=== PATIENT | female | born 1980 | race Caucasian/White ===

== ENCOUNTER 2019-08-16 23:04 | Emergency (ER) | payer BC ==
[2019-08-16] MEDS ORDERED: ONDANSETRON HCL INJ/PF 4 MG/2 ML SDV IV ONE (23:21)
[2019-08-16] MEDS ORDERED: NORMAL SALINE 1000 ML 1,000 ML IV ONE (23:22)
--- NOTE | 2019-08-16 23:25 | ER Document Report ---
ED Medical Screen (RME) - General Chief Complaint: ETOH Abuse Stated Complaint: DETOX ETOH Time Seen by Provider: 08/16/19 23:20 Notes: Patient is a 39-year-old female who presents to the emergency department with a chief complaint of withdrawal. Patient reports that she was clean from alcohol abuse for 6 months. Patient reports in June, which was about 1 month ago her grandmother causing her relapse. She reports she has been to rehab in the past but has never had any withdrawal seizures. Patient reports that she drinks 1-2 big bottles of wine per day. Patient reports her last alcoholic beverage was around 4 PM. Patient reports body tremors and hand tremors. Patient denies hallucinations. Patient denies recreational drug use. Patient called her family member deanna as she did want help and to come to the emergency department. Physical Exam - Vital signs Vitals: Temp Pulse Resp BP Pulse Ox 98.1 F 95 18 133/99 H 95 08/16/19 23:10 08/16/19 23:10 08/16/19 23:10 08/16/19 23:10 08/16/19 23:10 Course - Re-evaluation Re-evalutation: 08/16/19 23:23 Patient noted to have body tremors including hand tremors. Patient heart rate 160. Patient HUNG level upgraded to a level 2, charge nurse made aware so we can place the patient in a room on a conveyor monitor. I have initiated blood work, IV and IV fluids. I have greeted and performed a rapid initial assessment of this patient. A comprehensive ED assessment and evaluation of the patient, analysis of test results and completion of the medical decision making process will be conducted by additional ED providers. - Vital Signs Vital signs: Temp Pulse Resp BP Pulse Ox 98.1 F 95 18 133/99 H 95 08/16/19 23:10 08/16/19 23:10 08/16/19 23:10 08/16/19 23:10 08/16/19 23:10
[2019-08-17 01:31] LABS: APPEARANCE,URINE SLIGHTLY-CLOUDY; BILIRUBIN,URINE NEGATIVE (NEGATIVE); COLOR,URINE YELLOW; GLUCOSE, URINE NEGATIVE (NEGATIVE); KETONES,URINE 20 mg/dL (NEGATIVE); LEUKOCYTE ESTERASE,URINE NEGATIVE (NEGATIVE); NITRITE,URINE NEGATIVE (NEGATIVE); PROTEIN,URINE >=500 mg/dL (NEGATIVE); URINE SPECIFIC GRAVITY 1.022; UROBILINOGEN,URINE NEGATIVE mg/dL (<2.0)
[2019-08-17 01:50] LABS: ABSOLUTE BASOPHILS # (AUTO) 0.1 10^3/uL (0.0-0.2); ABSOLUTE LYMPHOCYTES (AUTO) 2.2 10^3/uL (0.5-4.7); ABSOLUTE MONOCYTES (AUTO) 0.5 10^3/uL (0.1-1.4); ABSOLUTE NEUT (AUTO) 8.8 10^3/uL (1.7-8.2); BASOPHILS % (AUTO) 0.5 % (0-2); HEMOGLOBIN 16.4 g/dL (12.0-15.5); LYMPHOCYTES % (AUTO) 18.7 % (13-45); MEAN CORPUSCULAR HEMOGLOBIN 29.4 pg (27.0-33.4); MEAN CORPUSCULAR HGB CONC 33.5 g/dL (32.0-36.0); MEAN CORPUSCULAR VOLUME 88 fl (80-97); MONOCYTES % (AUTO) 4.6 % (3-13); PLATELET COUNT 290 10^3/uL (150-450); RED BLOOD COUNT 5.59 10^6/uL (3.72-5.28); RED CELL DISTRIBUTION WIDTH 13.7 % (11.5-14.0); SEGMENTED NEUTROPHILS % (AUTO) 76.2 % (42-78); TOTAL CELLS COUNTED % (AUTO) 100 %; WHITE BLOOD COUNT 11.5 10^3/uL (4.0-10.5)
[2019-08-17 01:53] LABS: URINE AMPHETAMINES SCREEN NEGATIVE; URINE BARBITURATES SCREEN NEGATIVE; URINE BENZODIAZEPINES SCREEN NEGATIVE; URINE COCAINE SCREEN NEGATIVE; URINE MARIJUANA (THC) SCREEN NEGATIVE; URINE METHADONE SCREEN NEGATIVE; URINE PHENCYCLIDINE SCREEN NEGATIVE
[2019-08-17 02:11] LABS: ALBUMIN 4.8 g/dL (3.5-5.0); ALCOHOL 222 mg/dL (NONE DETECTED); ALKALINE PHOSPHATASE 106 U/L (38-126); ANION GAP 19 (5-19); ASPARTATE AMINO TRANSFERASE 43 U/L (14-36); BILIRUBIN,TOTAL 1.2 mg/dL (0.2-1.3); BLOOD UREA NITROGEN 10 mg/dL (7-20); CALCIUM 9.2 mg/dL (8.4-10.2); CARBON DIOXIDE 24 mmol/L (22-30); CHLORIDE 93 mmol/L (98-107); POTASSIUM 5.1 mmol/L (3.6-5.0); TOTAL PROTEIN 7.6 g/dL (6.3-8.2)
[2019-08-17 02:17] LABS: GLUCOSE 68 mg/dL (75-110)
[2019-08-17] MEDS ORDERED: METOPROLOL TARTRATE PF/INJ 5 MG/5 ML SDV IV ONE (04:03)
[2019-08-17] MEDS ORDERED: LORAZEPAM INJ 2 MG/1 ML VIAL IV ONE (04:03)
--- NOTE | 2019-08-17 04:13 | ER Document Report ---
ED General - General Chief Complaint: Alcohol Withdrawl Stated Complaint: DETOX ETOH Time Seen by Provider: 08/16/19 23:20 - HPI Notes: Ms. Hairston is a 39-year-old female who presents requesting alcohol detox. Patient previously went through detox last year. States that she "fell off the wagon" several weeks ago after the of a relative. She has been drinking about 2 pints of wine per day since then. Last alcohol intake was about 4 hours prior to presentation today. She feels tremulous and has vomited once. Also co mplains of dull headache. Patient denies use of drugs. She denies any hallucinations auditory or visual. She denies any suicidal or homicidal ideation. She has had a history of palpitations and regularly takes unknown dose of a beta-shereen and diltiazem. She is not had either these medications today. 2 para 2. Prior appendectomy. - Related Data Allergies/Adverse Reactions: No Known Allergies Allergy (Unverified 08/17/19 01:21) Home Medications: Cardizem. Citalopram. Trazadone. Hydroxyzine. Metoprolol Past Medical History - General Information source: Patient - Social History Smoking Status: Current Some Day Smoker Frequency of alcohol use: Heavy Drug Abuse: None Family History: Reviewed & Not Pertinent Patient has suicidal ideation: No Patient has homicidal ideation: No Psychiatric Medical History: Reports: Hx Depression Past Surgical History: Reports: Hx Appendectomy Review of Systems - Review of Systems Notes: Constitutional: Negative for fever. HENT: Negative for sore throat. Eyes: Negative for visual changes. Cardiovascular: Negative for chest pain. Respiratory: Negative for shortness of breath. Gastrointestinal: As per HPI. Genitourinary: Last menses 2 weeks ago described as normal. Negative for dysuria. Musculoskeletal: Negative for back pain. Skin: Negative for rash. Neurological: As per HPI. 10 point ROS negative except as marked above and in HPI. Physical Exam - Vital signs Vitals: Temp Pulse Resp BP Pulse Ox 98.1 F 95 18 133/99 H 95 08/16/19 23:10 08/16/19 23:10 08/16/19 23:10 08/16/19 23:10 08/16/19 23:10 - Notes Notes: GENERAL: Female patient of approximately stated age appearing anxious and tremulous with strong odor of alcohol present. SKIN: Good turgor no rashes. HEAD: Normocephalic atraumatic. EYES: PERRLA. EOMI. Conjunctivae injected bilaterally. EARS: CANALS AND TMS CLEAR. NOSE: CLEAR. MOUTH: Moist mucosa. Good dentition. No stridor or edema. No drooling. NECK: Supple. No masses or thyromegaly. No adenopathy. Carotids 2+ without bruits. No JVD. BACK: Symmetrical without tenderness. CHEST: Tachycardic. Respirations unlabored. Breath sounds clear and symmetrical. HEART: Regular rhythm. No murmur gallop or rub. ABDOMEN: Soft nontender without masses, organomegaly or rebound. Bowel sounds normally active. No bruits. GENITALIA: Deferred. EXTREMITIES: No edema. No calf tenderness. Cap refill less than 1.5 seconds. Dorsalis pedis and posterior tibial pulses 3+ and symmetrical. NEUROLOGICAL: Mild generalized tremor. GCS 15. Alert and oriented x3. Normal gait. Fluent speech. Cranial nerves II through XII intact. Sensorimotor and cerebellar normal. Normal tone. PSYCHIATRIC: Anxious affect. Course - Re-evaluation Re-evalutation: 08/17/19 04:16 Blood alcohol is 222. Urine drug screen is negative. Patient has mild alcohol withdrawal symptoms at this time. IV banana bag has been ordered. IV Ativan ordered. Because she has been on beta-shereen and calcium channel antagonist previously I will give her some metoprolol IV at this time. We will ask mental health to see the patient regarding referral to an inpatient detox facility. - Vital Signs Vital signs: Temp Pulse Resp BP Pulse Ox 98.1 F 104 H 25 H 106/81 92 08/17/19 02:01 08/17/19 01:10 08/17/19 03:00 08/17/19 02:01 08/17/19 03:00 - Laboratory Result Diagrams: 08/17/19 01:30 08/17/19 01:30 Laboratory results interpreted by me: 08/17/19 08/17/19 08/17/19 01:00 01:30 01:30 WBC 11.5 H RBC 5.59 H Hgb 16.4 H Hct 49.0 H Absolute Neuts (auto) 8.8 H Sodium 135.6 L Potassium 5.1 H Chloride 93 L Glucose 68 L AST 43 H Urine Protein >=500 H Urine Ketones 20 H Urine Blood MODERATE H Discharge - Discharge Clinical Impression: Chronic alcoholism Alcohol withdrawal syndrome Qualifiers: Complication of substance-induced condition: uncomplicated Qualified Code(s): F10.230 - Alcohol dependence with withdrawal, uncomplicated Condition: Stable Disposition: PSYCH HOSP/UNIT
[2019-08-17] MEDS ORDERED: THIAMINE HCL INJ 200 MG/2 ML VIAL ONE (04:56)
[2019-08-17] MEDS ORDERED: FOLIC ACID INJ 5 MG/1 ML 10 ML VIAL ONE (04:56)
[2019-08-17] MEDS ORDERED: POTASSI CL 20 MEQ/50 ML RIDER 0 MEQ/0 ML RTUPB IV ONE (04:59)
[2019-08-17] MEDS ORDERED: POTASSI CL 20 MEQ/NS 1L 1,000 ML IV ONE (04:59)
[2019-08-17] MEDS ORDERED: THIAMINE HCL 100 MG TABLET PO ONE (05:12)
[2019-08-17] MEDS ORDERED: MAGNESIUM SULFATE INJ 8 MEQ/2 ML IV ONE (05:13)
[2019-08-17] MEDS ORDERED: MVI, ADULT NO.1 WITH VIT K INJ 10 ML VIAL IV ONE ×2 (05:19→05:36)
[2019-08-17] MEDS ORDERED: HYDROXYZINE PAMOATE 25 MG CAPSULE PO ONE (10:42)
[2019-08-17] MEDS ORDERED: DIAZEPAM 5 MG TABLET PO ONE ×2 (10:45→15:27)
[2019-08-17] MEDS ORDERED: NICOTINE 14 MG/24 HR PATCH.TD24 TD ONE (10:49)
[2019-08-17] MEDS ORDERED: FAMOTIDINE 20 MG TABLET PO ONE (10:49)
[2019-08-17] MEDS ORDERED: SUCRALFATE 1 GM TABLET PO ONE (10:49)
--- NOTE | 2019-08-17 10:51 | ER Document Report ---
Doctor's Note Notes: 08/17/19 10:50 PHYSICAL EXAMINATION: GENERAL: Appears well, healthy, well-nourished, no acute distress. LUNGS: Equal breath sounds bilaterally and clear to auscultation. No wheezes rales or rhonchi. CARDIOVASCULAR: S1-S2, regular rate, regular rhythm. Radial pulses 2+, normal. ABDOMEN: Normoactive bowel sounds. Soft, nontender, no guarding, no rebound tenderness, and no masses palpated. PSYCH: Stoic. Patient states that she feels a little agitated. She does have a little bit of left upper quadrant abdominal discomfort. Ordered Pepcid and Carafate for her. Awaiting mental health recommendations. 08/17/19 15:17 Patient has a bed at [facility]. Patient states that she feels a little anxious and shaky like she did earlier, and stated that the Valium did help her earlier. I will give her another dose before she leaves. Mental health has cleared the patient. And she is also medically clear. Labs reviewed. Follow- up precautions were given. Verbal discharge instructions were given to the patient. They verbalized understanding. They are stable for transfer to [facility].
[2019-08-17 12:39] VITALS: BP 115/82
--- NOTE | 2019-08-17 14:51 | PSYCHOLOGICAL NOTE ---
Psych Note - Psych Note Date seen by psych provider: 08/17/19 Time seen by psych provider: 08:34 - Initial Evaluation Psych Note: Presenting Problem: Patient presented to the ED late last evening for alcohol withdrawal and desire for detox. Her Serum Alcohol Level was 222 upon arrival to the ED. She reported drinking 1-2 wine bottles daily for the past 6 months. She acknowledged she relapsed when her grandmother . She denied SI/HI and these were never presenting concerns. She confirmed she wanted treatment, detox not longer term and wanted to be close. She gave verbal consent for linkage and referral to [facility] for voluntary alcohol detox. She identified she has been in treatment in the past, needs to detox and then she knows what she needs to do. She denied any seizure history. She reported she has sinus tachycardia. She acknowledged she is prescribed Celexa and Vistaril from a Psychologist in [place]. She stated she has medication management and therapy there but need local linkage. Patient made fair eye contact and engaged in evaluation. [facility] ED [facility] team coordinated with Agnelique at [facility] for placement. Provided verbal referral (patient name, age, bday, alcohol use and wanting detox). They stated they would have bed available at 1600 but patient would need to have a ride. Explained patient would have packet with her lab work. Patient agreed to go and had no problem with having to wait an hour and a half. She had an older male show up to visit who said he would transport her from ED to [place]. Diagnosis: Alcohol Intoxication Alcohol Withdrawal Desire for Detox Impression/Plan: Patient is cleared from acute psychiatric services. She denied SI/HI, made fair eye contact and was engaged in evaluation. She expressed desire for voluntary alcohol detox as close as possible. She gave verbal consent to provide linkage to [facility]. They have accepted her and bed available at 1600. Older male visitor said he would transport her from ED to [place]. Consulted with Dr. Mckinney regarding the management and care of patient. ED Physician in agreement with recommendations.
[2019-08-17] MEDS ORDERED: NORMAL SALINE 1000 ML 1,000 ML with POTASSIUM CHLORIDE 10 MEQ, MAGNESIUM SULFATE 8 MEQ,... IV SCH ×5 (18:00)
--- NOTE | 2019-08-17 23:26 | EKG REPORT ---
SEVERITY:- ABNORMAL ECG - SINUS TACHYCARDIA LEFT POSTERIOR FASCICULAR BLOCK BORDERLINE T ABNORMALITIES, INFERIOR LEADS : Confirmed by: Zaki Martinez 17-Aug-2019 23:25:27
== END 2019-08-17 15:57 | disposition home or self-care (01) ==
LOC: ER 23:04
DX: F10.230 Alcohol dependence with withdrawal, uncomplicated (principal); Y90.7 Blood alcohol level of 200-239 mg/100 ml; I44.5 Left posterior fascicular block; Z63.4 Disappearance and death of family member; R51 Headache; R00.0 Tachycardia, unspecified; R11.10 Vomiting, unspecified; R25.1 Tremor, unspecified; F32.9 Major depressive disorder, single episode, unspecified; R00.2 Palpitations; Z79.899 Other long term (current) drug therapy; F17.200 Nicotine dependence, unspecified, uncomplicated
CPT/HCPCS: 93005; 99285; 96361; 96375; 96365; 96366; 36415; 80307 ×2; 84703; 85025; 80053; 81001; 93010; J3490 ×3; J3475; J2060; J2405; J7030

== ENCOUNTER 2019-08-19 21:11 | Emergency (ER) | payer BC ==
--- NOTE | 2019-08-19 22:38 | ER Document Report ---
ED Medical Screen (RME) - General Chief Complaint: Arm Problem Stated Complaint: LEFT ARM PAIN Time Seen by Provider: 08/19/19 22:36 Notes: 39-year-old female presents with left elbow pain. Patient states she thinks that her IV is still in there. Patient had IV placed here. Patient states there is streaking. Radial pulse 2+. No erythema, no swelling. I have greeted and performed a rapid initial assessment of this patient. A comprehensive ED assessment and evaluation of the patient, analysis of test results and completion of the medical decision making process with be conducted by additional ED providers. TRAVEL OUTSIDE OF THE [place] IN LAST 30 DAYS: No - Related Data Allergies/Adverse Reactions: No Known Allergies Allergy (Unverified 08/19/19 22:30) Past Medical History Psychiatric Medical History: Reports: Hx Depression Past Surgical History: Reports: Hx Appendectomy Physical Exam - Vital signs Vitals: Temp Pulse Resp BP Pulse Ox 99.1 F 72 18 145/98 H 99 08/19/19 22:07 08/19/19 22:07 08/19/19 22:07 08/19/19 22:07 08/19/19 22:07 Course - Vital Signs Vital signs: Temp Pulse Resp BP Pulse Ox 99.1 F 72 18 145/98 H 99 08/19/19 22:07 08/19/19 22:07 08/19/19 22:07 08/19/19 22:07 08/19/19 22:07
--- NOTE | 2019-08-19 23:43 | RADIOLOGY REPORT (SQ) ---
EXAM DESCRIPTION: XR ELBOW 3 VIEWS COMPLETED DATE/TME: 08/19/2019 22:41 CLINICAL HISTORY: 39 years ,Female pain, recent IV placement, rule out foreign body COMPARISON: None. TECHNIQUE: Left elbow, four view FINDINGS: No acute fractures or dislocations are identified. No osseous destructive lesions. No evidence of joint effusion. Bone island in the radial head. IMPRESSION: No acute fractures are identified. If symptoms persist, followup is recommended in 7-10 days.
[2019-08-20 00:39] LABS: ALBUMIN 4.2 g/dL (3.5-5.0); ALKALINE PHOSPHATASE 80 U/L (38-126); ANION GAP 7 (5-19); ASPARTATE AMINO TRANSFERASE 130 U/L (14-36); BILIRUBIN,TOTAL 0.5 mg/dL (0.2-1.3); BLOOD UREA NITROGEN 13 mg/dL (7-20); CALCIUM 9.7 mg/dL (8.4-10.2); CARBON DIOXIDE 32 mmol/L (22-30); CHLORIDE 99 mmol/L (98-107); GLUCOSE 89 mg/dL (75-110); POTASSIUM 4.7 mmol/L (3.6-5.0); TOTAL PROTEIN 6.9 g/dL (6.3-8.2); URINE AMPHETAMINES SCREEN NEGATIVE; URINE BARBITURATES SCREEN NEGATIVE; URINE BENZODIAZEPINES SCREEN NEGATIVE; URINE COCAINE SCREEN NEGATIVE; URINE MARIJUANA (THC) SCREEN NEGATIVE; URINE METHADONE SCREEN NEGATIVE; URINE PHENCYCLIDINE SCREEN NEGATIVE
[2019-08-20 01:28] LABS: ABSOLUTE EOSINOPHILS # (AUTO) 0.2 10^3/uL (0.0-0.6); ABSOLUTE LYMPHOCYTES (AUTO) 1.8 10^3/uL (0.5-4.7); ABSOLUTE MONOCYTES (AUTO) 0.3 10^3/uL (0.1-1.4); ABSOLUTE NEUT (AUTO) 2.3 10^3/uL (1.7-8.2); BASOPHILS % (AUTO) 0.8 % (0-2); EOSINOPHILS % (AUTO) 5.2 % (0-6); HEMATOCRIT 38.7 % (36.0-47.0); MEAN CORPUSCULAR HEMOGLOBIN 29.6 pg (27.0-33.4); MEAN CORPUSCULAR HGB CONC 33.5 g/dL (32.0-36.0); MEAN CORPUSCULAR VOLUME 88 fl (80-97); MONOCYTES % (AUTO) 6.6 % (3-13); PLATELET COUNT 129 10^3/uL (150-450); RED BLOOD COUNT 4.39 10^6/uL (3.72-5.28); SEGMENTED NEUTROPHILS % (AUTO) 48.4 % (42-78); TOTAL CELLS COUNTED % (AUTO) 100 %; WHITE BLOOD COUNT 4.7 10^3/uL (4.0-10.5)
--- NOTE | 2019-08-20 02:55 | ER Document Report ---
ED General - General Chief Complaint: Arm Problem Stated Complaint: LEFT ARM PAIN Time Seen by Provider: 08/19/19 22:36 Mode of Arrival: Ambulatory Information source: Patient TRAVEL OUTSIDE OF THE [place] IN LAST 30 DAYS: No - HPI Onset: Other - over the last few days Onset/Duration: Gradual Quality of pain: Pressure Severity: Moderate Pain Level: 3 Associated symptoms: Other - left arm pain and mild swelling Exacerbated by: Movement Relieved by: Denies Similar symptoms previously: No Recently seen / treated by doctor: Yes - patient seen for alcohol detox on 08/16/19 Notes: 39 year old female with a history of Alcohol Abuse here in the ER for left arm pain and mild swelling for the last several days. The patient says she thinks the pain started from the IV she had in her left arm while in this ER on 08/16/19 for alcohol detox. The patient denies redness or warmth of her left arm but she has noticed some mild swelling and pain with movement of her left elbow and left shoulder. - Related Data Allergies/Adverse Reactions: No Known Allergies Allergy (Unverified 08/19/19 22:30) Past Medical History - General Information source: Patient - Social History Smoking Status: Current Every Day Smoker Frequency of alcohol use: Occasional Drug Abuse: None Family History: Reviewed & Not Pertinent Patient has suicidal ideation: No Patient has homicidal ideation: No Psychiatric Medical History: Reports: Hx Depression Past Surgical History: Reports: Hx Appendectomy Review of Systems - Review of Systems Constitutional: No symptoms reported EENT: No symptoms reported Cardiovascular: No symptoms reported Respiratory: No symptoms reported Gastrointestinal: No symptoms reported Genitourinary: No symptoms reported Female Genitourinary: No symptoms reported Musculoskeletal: Other - left arm pain and swelling Skin: No symptoms reported Hematologic/Lymphatic: No symptoms reported Neurological/Psychological: No symptoms reported -: Yes All other systems reviewed and negative Physical Exam - Vital signs Vitals: Temp Pulse Resp BP Pulse Ox 99.1 F 72 18 145/98 H 99 08/19/19 22:07 08/19/19 22:07 08/19/19 22:07 08/19/19 22:07 08/19/19 22:07 - Notes Notes: GENERAL: Well-appearing, well-nourished and in no acute distress. HEAD: Atraumatic, normocephalic. EYES: Pupils equal round and reactive to light, extraocular movements intact, sclera anicteric, conjunctiva are normal. ENT: TMs normal, nares patent, oropharynx clear without exudates. Moist mucous membranes. NECK: Normal range of motion, supple without lymphadenopathy or JVD. LUNGS: Breath sounds clear to auscultation bilaterally and equal. No wheezes rales or rhonchi. HEART: Regular rate and rhythm without murmurs, rubs or gallops. ABDOMEN: Soft, nontender, normoactive bowel sounds. No guarding, no rebound. No masses appreciated. EXTREMITIES: Decreaed range of motion of left arm due to pain, no pitting or edema. Tender over entire left arm but worse in area of elbow. on flexor surface. No clubbing or cyanosis. NEUROLOGICAL: Cranial nerves II through XII grossly intact. Normal speech, normal gait. PSYCH: Normal mood, normal affect. SKIN: Warm, Dry, normal turgor, no rashes or lesions noted. Left Arm IV site observed in left anticubital fossa with no sign of cellulites or an abscess. Course - Re-evaluation Re-evalutation: 08/20/19 08:22 The patient is here for pain in her left arm which she says only started after she had an IV in her left arm here at [facility] 08/16/19. The patient has no sign of a skin infection on physical exam. US shows superficial thrombophlebitis of her celiac vein. Patient told to use tylenol and motrin and she was given a short course of [place] for pain not well controlled. - Vital Signs Vital signs: Temp Pulse Resp BP Pulse Ox 98.0 F 61 16 127/89 H 99 08/20/19 07:01 08/20/19 07:01 08/20/19 07:01 08/20/19 07:01 08/20/19 07:01 - Laboratory Result Diagrams: 08/20/19 00:54 08/19/19 23:36 Laboratory results interpreted by me: 08/19/19 08/20/19 23:36 00:54 Plt Count 129 L Carbon Dioxide 32 H AST 130 H Discharge - Discharge Clinical Impression: Arm pain, left, Thrombophlebitis arm Condition: Stable Disposition: HOME, SELF-CARE Instructions: Superficial Phlebitis ([facility]) Additional Instructions: You have a blood clot in your left arm. Use ice pack, tylenol, and motrin for pain. Use [place] for pain not well controlled. Follow up with your primary care doctor or one of the primary care doctors listed. Prescriptions: Hydrocodone/Acetaminophen [[place] 5-325 mg Tablet] 1 tab PO Q8H PRN #10 tablet PRN Reason:
[2019-08-20] MEDS ORDERED: KETOROLAC TROMETHAMINE 10 MG TABLET PO ONE (03:44)
[2019-08-20 09:09] VITALS: BP 139/84
--- NOTE | 2019-08-20 10:41 | XCELERA REPORT ---
[address] [address] Upper Extremity Venous Evaluation Name: MAGDY WALLACE Age: 39 yrs Gender: Female : 1980 Patient Status: Emergency Patient Location: ER Study Date: 08/20/2019 08:19 AM Procedure: Unilateral duplex scan of the left upper extremity veins was performed, including responses to compression and other maneuvers. Reason For Study: rule out DVT, LUE PAIN/SWELLING Ordering Physician: MILAGROS MONIQUE Performed By: Myles Roldan Left Sided Venous Evaluation Abnormal vessel filling, no compression or Colour flow , enlarged veins with echogenic content , in the Cephalic vein. Oterwise normal vessel filling wall to wall, compression and augmentation as well as Colour flow down to the forearm veins. Interpretation Summary No duplex evidence of DVT or obstruction in the left upper extremity. Superficial phlebitis in the Cephalic vein noted. : MILAGROS MONIQUE [place]
== END 2019-08-20 09:09 | disposition home or self-care (01) ==
LOC: ER 21:11
DX: T80.1XXA Vascular complications following infusion, transfusion and therapeutic injection, initial encounter (principal); I80.212 Phlebitis and thrombophlebitis of left iliac vein; M79.602 Pain in left arm; X58.XXXA Exposure to other specified factors, initial encounter; F17.200 Nicotine dependence, unspecified, uncomplicated
CPT/HCPCS: 99283; 36415; 84703; 85025; 80053; 80307; 93971 ×2; 73080; J3490

== ENCOUNTER 2020-03-26 07:08 | Day surgery (SDC) | payer BC, MEDICAID, OTHER ==
[~2020-03-26 07:08] MED LIST: CEFAZOLIN 2 GM/D5W RTU 2 GM/50 ML RTUPB IV ONE; CEFAZOLIN 2 GM/D5W RTU 2 GM/50 ML RTUPB IV PRN; FENTANYL CITRATE INJ/PF 100 MCG/2 ML AMPUL ONE; LACTATED RINGERS 1000 ML IV PRN; LIDOCAINE 0.5% INJ-PF (5 MG/ML) 50 ML SDV SUBCUT PRN; LIDOCAINE 2% INJ-PF (20 MG/ML) 10 ML AMPUL ONE; MIDAZOLAM 2 MG/2 ML INJ ONE; PROPOFOL INJ 200 MG/20 ML VIAL IV ONE
[2020-03-26] MEDS ORDERED: BUPIVACAINE INJ/PF LIPOSOME/PF 266 MG/20 ML SDV ONE (07:14)
--- NOTE | 2020-03-26 08:25 | Operative Report ---
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 The patient had twos anal skin tabs with associated condylomata one was at 6:00 and one was at 1:00 Both the skin tags were grasped with a Allis clamp and placed on traction and then using a 15 blade they were excised down to subcutaneous tissue avoiding injury to the underlying sphincter mechanism After excision the skin was reapproximated with running 3-0 Vicryl suture Both wounds were anesthetized with Exparel Patient tolerated the procedure well and was returned to recovery in stable condition FRANK Aguilar was present for the entire procedure help with wound retraction wound closure
[2020-03-26] MEDS ORDERED: HYDROCODONE/ACETAMINOPHEN 10-325 MG TABLET PO PRN (08:28)
--- NOTE | 2020-03-26 08:28 | Discharge Summary ---
Discharge Summary (SDC) - Discharge Final Diagnosis: Anal skin tag and anal condylomata Date of Surgery: 03/26/20 Discharge Date: 03/26/20 Condition: Good Treatment or Instructions: Use sitz baths after bowel movements Prescriptions: Hydrocodone/Acetaminophen [[place] 10-325 mg Tablet] 1 tab PO Q6HP PRN #10 tablet PRN Reason: Discharge Activity: Activity As Tolerated Home Care Assistance: None Needed Report the Following to Your Physician Immediately: Shortness of Breath, Increase in Pain, Unusual Bleeding - Patient is a follow-up appointment in 7 to 10 days surgical clinic
[2020-03-26] MEDS ORDERED: MEPERIDINE HCL/PF INJ 25 MG/1 ML DISP.SYRIN IV PRN (08:37)
[2020-03-26] MEDS ORDERED: FENTANYL CITRATE INJ/PF 100 MCG/2 ML AMPUL IV PRN ×3 (08:37)
[2020-03-26] MEDS ORDERED: DIPHENHYDRAMINE HCL 50 MG/ML VIAL IV PRN (08:37)
[2020-03-26] MEDS ORDERED: PROMETHAZINE HCL INJ 25 MG/1 ML VIAL IV PRN ×2 (08:37)
[2020-03-26 10:28] VITALS: BP 118/72
[2020-03-26] MEDS ORDERED: ONDANSETRON HCL INJ/PF 4 MG/2 ML SDV ONE (15:44)
[2020-03-26] MEDS ORDERED: DEXAMETHASONE SOD PHOSPHATE INJ 4 MG/1 ML VIAL ONE (15:44)
== END 2020-03-26 10:00 | disposition home or self-care (01) ==
LOC: OROUT 07:08
PROVIDERS: ATTEND Surgery
DX: K64.4 Residual hemorrhoidal skin tags (principal); A63.0 Anogenital (venereal) warts; Z03.818 Encounter for observation for suspected exposure to other biological agents ruled out
CPT/HCPCS: 87635; 81025; 00902; 46230; 46922; J2250; J1100; J3010; J2405; J2704; J3490; J0690; C9290; C9803; 902